=== PATIENT | female | born 1945 ===

== ENCOUNTER 2018-07-10 12:12 | Inpatient (IN) | payer OTHER ==
[2018-07-10] MEDS ORDERED: CYCLOBENZAPRINE 10 MG TAB PO PRN (15:20)
[2018-07-10 15:32] LABS: PLATELET COUNT 232 10^3/uL (150-400)
--- NOTE | 2018-07-10 15:42 | PDGENHP ---
History and Physical - Chief Complaint transfer from [facility] - History of Present Illness 72 yo female with hx of ESRD admitted to [facility] on 07/09 with syncope and weakness. She had a syncopal episode prior to arrival to [facility] ER. At the ER, she was noted to have electrolyte imbalance including Hypokalemia and Hypocalcemia. She did not have significant hypomagnesemia. She went into [place]. EKG showed prolonged QT; Amio was started. Electrolytes were replaced. She was admitted into their ICU and had recurrence of the [place] and had cardiopulmonary arrest which required chest compressions and defibrillation. She has been kept on the Amio. Plan today was to proceed with possible cardiac cath. However the [facility] cardiac cath machine is not functional and she has been transferred to our ICU for further w/u and evaluation. Leading up to yesterday, the pt had some generalized malaise. She does reports that she has been getting dry with dialysis and that less fluid has been removed during her 2 previous dialysis sessions prior to hospitalization. She denies active chest pain. She denies SOB. She is scheduled for HD today and I have confirmed with nephrology. She denies recent medication changes, fevers. She denies rash. Denies focal neuro sx's. Labs are pending EKG is pending PMHx: IDDM, Type 2 HLD, intolerant of statin due to myalgia ESRD PROLONGED QT CAD CABG (5 vessel) HYPOTHYROIDISM SOC: LIVES ALONE FMHX: NON CONTRIBUTORY History Information - Allergies/Home Medication List Allergies/Adverse Reactions: cats Allergy (Mild, Uncoded 07/10/18 15:17) Home Medications: Allopurinol [Allopurinol 100 MG (*)] 100 mg PO DAILY 07/10/18 [Last Taken ] Aspirin EC [Aspirin EC 81 mg (*)] 81 mg PO DAILY 07/10/18 [Last Taken Unknown] Carvedilol [Coreg] 12.5 mg PO BIDMEAL 07/10/18 [Last Taken Unknown] Citalopram [CeleXA] 20 mg PO DAILY 07/10/18 [Last Taken Unknown] Cyclobenzaprine [Cyclobenzaprine HCl] 5 mg PO BID PRN 07/10/18 [Last Taken Unknown] Fluticasone Nasal [Flonase Nasal [place] (RX)] 2 sprays NASAL DAILY PRN 07/10/18 [ Last Taken Unknown] Fluticasone/Vilanterol [Breo Ellipta 200-25 Mcg INH] 1 each IH BID 07/10/18 [ Last Taken Unknown] Folic Acid/Vit B Com W/C [Nephro-Fernanda Rx (RX)] 1 each PO DAILY 07/10/18 [Last Taken Unknown] Herbals/Supplements -Info Only 1 ea PO DAILY 07/10/18 [Last Taken Unknown] Insulin Lispro Protamin/Lispro [Humalog Mix 75-25 Kwikpen] 4 units SC HS [Last Taken Unknown] Insulin Lispro Protamin/Lispro [Humalog Mix 75-25 Kwikpen] 20 units SC BID@07/10/18 [Last Taken Unknown] Levothyroxine [Synthroid 125 mcg (*)] 125 mcg PO DAILY06 07/10/18 [Last Taken Unknown] Loratadine [Claritin] 10 mg PO DAILY PRN 07/10/18 [Last Taken Unknown] Rosuvastatin Calcium [Crestor 20mg (*)] 20 mg PO HS 07/10/18 [Last Taken Unknown ] Sevelamer Carbonate [Renvela] 800 mg PO TIDMEAL 07/10/18 [Last Taken Unknown] amLODIPine BESYLATE [Norvasc 10 mg (*)] 10 mg PO DAILY 07/10/18 [Last Taken 03/18] guanFACINE HCL [Guanfacine HCl 1 MG (*)] 1 mg PO HS 07/10/18 [Last Taken Unknown ] traMADol [Ultram 50 mg (*)] 50 mg PO BID PRN 07/10/18 [Last Taken Unknown] I have personally reviewed and updated: medical history, social history Review of Systems Review of Systems: ROS: 10pt was reviewed & negative except for what was stated in HPI & below Physical Exam Physical Exam: Constitutional: no apparent distress Eyes: PERRL Ears, Nose, Mouth, Throat: moist mucous membranes, hearing normal Cardiovascular: regular rate and rhythym, No edema Respiratory: no respiratory distress, no rales or rhonchi, clear to auscultation Gastrointestinal: normoactive bowel sounds, soft, non-tender abdomen Genitourinary: no bladder fullness Skin: warm Neurologic: AAOx3 Psychiatric: interacting appropriately, not anxious, not encephalopathic Lymph, Heme, Immunologic: No petechiae Lab Data & Imaging Review 07/10/18 15:20 07/10/18 15:20 WBC 8.54 10^3/uL (3.80-9.50) 07/10/18 15:20 RBC 2.55 10^6/uL (4.18-5.33) L 07/10/18 15:20 Hgb 8.0 g/dL (12.6-16.3) L 07/10/18 15:20 Hct 24.6 % (38.0-47.0) L 07/10/18 15:20 MCV 96.5 fL (81.5-99.8) 07/10/18 15:20 MCH 31.4 pg (27.9-34.1) 07/10/18 15:20 MCHC 32.5 g/dL (32.4-36.7) 07/10/18 15:20 RDW 15.8 % (11.5-15.2) H 07/10/18 15:20 Plt Count 232 10^3/uL (150-400) 07/10/18 15:20 MPV 10.5 fL (8.7-11.7) 07/10/18 15:20 Neut % (Auto) 74.7 % (39.3-74.2) H 07/10/18 15:20 Lymph % (Auto) 14.1 % (15.0-45.0) L 07/10/18 15:20 [place] % (Auto) 7.3 % (4.5-13.0) 07/10/18 15:20 Eos % (Auto) 2.7 % (0.6-7.6) 07/10/18 15:20 Baso % (Auto) 0.4 % (0.3-1.7) 07/10/18 15:20 Nucleat RBC Rel Count 0.0 % (0.0-0.2) 07/10/18 15:20 Absolute Neuts (auto) 6.39 10^3/uL (1.70-6.50) 07/10/18 15:20 Absolute Lymphs (auto) 1.20 10^3/uL (1.00-3.00) 07/10/18 15:20 Absolute Monos (auto) 0.62 10^3/uL (0.30-0.80) 07/10/18 15:20 Absolute Eos (auto) 0.23 10^3/uL (0.03-0.40) 07/10/18 15:20 Absolute Basos (auto) 0.03 10^3/uL (0.02-0.10) 07/10/18 15:20 Absolute Nucleated RBC 0.00 10^3/uL (0-0.01) 07/10/18 15:20 Immature Gran % 0.8 % (0.0-1.1) 07/10/18 15:20 Immature Gran # 0.07 10^3/uL (0.00-0.10) 07/10/18 15:20 Assessment & Plan Assessment: #Syncope #[place] x 2, sustained during second episode and reported cardiopulmonary arrest requiring chest compressions and defibrillation #Prolonged QT #IDDM #Hypothyroidism #ESRD #Hypokalemia #Hypocalcemia Plan: admit ICU Stat EKG Dr. Sage Morgan consulting Unclear if her presentation is due to electrolyte imbalances vs CV disease Cont Amio: per Cardiology Possible cath per cardio HD later today STAT labs, further recss pending results ISS Home meds as appropriate total critical care is 60 minutes. D/W [facility] at [facility], Dixon Ponce ( Nephrology)
[2018-07-10 15:53] LABS: INR 1.22 (0.83-1.16); PROTIME(PATIENT) 14.9 SEC (12.0-15.0)
--- NOTE | 2018-07-10 15:53 | PDCARCONS ---
Cardiology Consult Reason for Consult: Coronary artery disease, torsade de Pointe. Chief Complaint: Syncope. Requesting Physician: Dr. Obed Escobar History of Present Illness: This 72-year-old female well known to me from my outpatient clinic. Her cardiovascular disease history is significant for: 1. Coronary artery disease. She initially presented in February of 2008 with acute coronary syndrome. Angiography indicated left main and right coronary disease. She underwent five-vessel CABG consisting of a SWIFT to the LAD, SVG to the 1st diagonal branch, SVG to an obtuse marginal branch and a sequential saphenous vein graft from the right PDA to the right posterolateral branch. Historically she has had a normal ejection fraction. Her most recent noninvasive assessment was by [facility] myocardial perfusion imaging in December of 2017. That was a low risk study that indicated mild anterior apical and inferoapical ischemia. 2. Type 2 diabetes mellitus. 3. Hypertension. 4. Hyperlipidemia. She has been intolerant to statin medications due to myalgias. 5. End-stage renal disease. She has a history of left renal artery stenosis with an atrophic kidney. Currently dialyzed Friday and Friday. 6. Morbid obesity. 7. Obstructive sleep apnea currently on CPAP. 8. COPD followed by Dr. Noe Suazo. She was transferred to the intensive care unit here from [facility]. She states that she has not been feeling well now for a couple of weeks. She has had symptoms of nausea without emesis or diarrhea. She also felt that dialysis was dehydrating her. Apparently adjustments were made to her dialysis treatments. Friday, while she was at home, she thinks she may have suffered an episode of syncope. On , she did experience an abrupt loss of consciousness. She apparently called 1 of her friends and was advised to go to the emergency department at [facility]. In the emergency department there she was initially noted to be stable. Apparently she had nonsustained torsade de Pointe. Her potassium level was noted to be in the mid threes at that time. An ECG parent Kunal indicated a prolonged QT interval. As result, she was placed on amiodarone and transferred to the ICU. Last night she experienced sustained torsade de Pointe. She required a short round of CPR and subsequently defibrillation. Apparently her potassium level at that time was 2.4. She has no history of syncope. She states she has not experienced anginal quality chest discomfort. She notes no breathlessness. History Information - Allergies/Home Medication List Allergies/Adverse Reactions: cats Allergy (Mild, Uncoded 07/10/18 15:17) Home Medications: Allopurinol [Allopurinol 100 MG (*)] 100 mg PO DAILY 07/10/18 [Last Taken ] Aspirin EC [Aspirin EC 81 mg (*)] 81 mg PO DAILY 07/10/18 [Last Taken Unknown] Carvedilol [Coreg] 12.5 mg PO BIDMEAL 07/10/18 [Last Taken Unknown] Citalopram [CeleXA] 20 mg PO DAILY 07/10/18 [Last Taken Unknown] Cyclobenzaprine [Cyclobenzaprine HCl] 5 mg PO BID PRN 07/10/18 [Last Taken Unknown] Fluticasone Nasal [Flonase Nasal [place] (RX)] 2 sprays NASAL DAILY PRN 07/10/18 [ Last Taken Unknown] Fluticasone/Vilanterol [Breo Ellipta 200-25 Mcg INH] 1 each IH BID 07/10/18 [ Last Taken Unknown] Folic Acid/Vit B Com W/C [Nephro-Fernanda Rx (RX)] 1 each PO DAILY 07/10/18 [Last Taken Unknown] Herbals/Supplements -Info Only 1 ea PO DAILY 07/10/18 [Last Taken Unknown] Insulin Lispro Protamin/Lispro [Humalog Mix 75-25 Kwikpen] 4 units SC HS [Last Taken Unknown] Insulin Lispro Protamin/Lispro [Humalog Mix 75-25 Kwikpen] 20 units SC BID@07/10/18 [Last Taken Unknown] Levothyroxine [Synthroid 125 mcg (*)] 125 mcg PO DAILY06 07/10/18 [Last Taken Unknown] Loratadine [Claritin] 10 mg PO DAILY PRN 07/10/18 [Last Taken Unknown] Rosuvastatin Calcium [Crestor 20mg (*)] 20 mg PO HS 07/10/18 [Last Taken Unknown ] Sevelamer Carbonate [Renvela] 800 mg PO TIDMEAL 07/10/18 [Last Taken Unknown] amLODIPine BESYLATE [Norvasc 10 mg (*)] 10 mg PO DAILY 07/10/18 [Last Taken 03/18] guanFACINE HCL [Guanfacine HCl 1 MG (*)] 1 mg PO HS 07/10/18 [Last Taken Unknown ] traMADol [Ultram 50 mg (*)] 50 mg PO BID PRN 07/10/18 [Last Taken Unknown] I have personally reviewed and updated: family history, medical history, social history, surgical history Past Medical History: Coronary artery disease as described above. Type 2 diabetes mellitus. Hyperlipidemia. Hypertension. Peripheral vascular disease with a history of renal artery stenosis. End-stage renal disease on hemodialysis. History of diabetic retinopathy. Obstructive sleep apnea on CPAP. Depression. Hypothyroidism. - Surgical History Additional surgical history: Prior AV fistula. Coronary artery bypass graft surgery. Cataract surgery. - Social History Smoking Status: Former smoker Alcohol Use: None Drug Use: None (She lives independently. She is here today accompanied by her son who is an emergency department physician.) Physical Exam Physical Exam: Constitutional: no apparent distress, appears nourished, not in pain Eyes: PERRL, anicteric sclera, EOMI Ears, Nose, Mouth, Throat: moist mucous membranes, hearing normal, ears appear normal, no oral mucosal ulcers Cardiovascular: regular rate and rhythym, no murmur, rub, or gallop, No edema Peripheral Pulses: 2+: carotid (R), carotid (L) Respiratory: no respiratory distress, no rales or rhonchi, clear to auscultation Gastrointestinal: normoactive bowel sounds, soft, non-tender abdomen, no palpable masses Genitourinary: no bladder fullness, no bladder tenderness Skin: warm, normal color, no rashes or abrasions, no fluctuance, no induration, No mottled Musculoskeletal: full muscle strength, no muscle tenderness, normal joint ROM, no joint effusions Psychiatric: interacting appropriately, not anxious, not encephalopathic, thought process linear Lymph, Heme, Immunologic: no cervical LAD, no supraclavicular LAD Lab and Imaging 07/10/18 15:20 07/10/18 15:20 WBC 8.54 10^3/uL (3.80-9.50) 07/10/18 15:20 RBC 2.55 10^6/uL (4.18-5.33) L 07/10/18 15:20 Hgb 8.0 g/dL (12.6-16.3) L 07/10/18 15:20 Hct 24.6 % (38.0-47.0) L 07/10/18 15:20 MCV 96.5 fL (81.5-99.8) 07/10/18 15:20 MCH 31.4 pg (27.9-34.1) 07/10/18 15:20 MCHC 32.5 g/dL (32.4-36.7) 07/10/18 15:20 RDW 15.8 % (11.5-15.2) H 07/10/18 15:20 Plt Count 232 10^3/uL (150-400) 07/10/18 15:20 MPV 10.5 fL (8.7-11.7) 07/10/18 15:20 Neut % (Auto) 74.7 % (39.3-74.2) H 07/10/18 15:20 Lymph % (Auto) 14.1 % (15.0-45.0) L 07/10/18 15:20 [place] % (Auto) 7.3 % (4.5-13.0) 07/10/18 15:20 Eos % (Auto) 2.7 % (0.6-7.6) 07/10/18 15:20 Baso % (Auto) 0.4 % (0.3-1.7) 07/10/18 15:20 Nucleat RBC Rel Count 0.0 % (0.0-0.2) 07/10/18 15:20 Absolute Neuts (auto) 6.39 10^3/uL (1.70-6.50) 07/10/18 15:20 Absolute Lymphs (auto) 1.20 10^3/uL (1.00-3.00) 07/10/18 15:20 Absolute Monos (auto) 0.62 10^3/uL (0.30-0.80) 07/10/18 15:20 Absolute Eos (auto) 0.23 10^3/uL (0.03-0.40) 07/10/18 15:20 Absolute Basos (auto) 0.03 10^3/uL (0.02-0.10) 07/10/18 15:20 Absolute Nucleated RBC 0.00 10^3/uL (0-0.01) 07/10/18 15:20 Immature Gran % 0.8 % (0.0-1.1) 07/10/18 15:20 Immature Gran # 0.07 10^3/uL (0.00-0.10) 07/10/18 15:20 Visualized and Interpreted Chest x-ray results: No Visualized and Interpreted imaging results: No Visualized and Interpreted EKG results: Yes EKG additional interpertation: Normal sinus rhythm. Heart rate 62 beats per minute. Markedly prolonged QTC measuring 584 milliseconds. Anterior T-wave inversions. First-degree AV block at 256 milliseconds. Telemetry: Sinus rhythm to sinus bradycardia Echocardiogram: He had an echocardiogram done at [facility] yesterday. This indicated a normal ejection fraction without significant valvular heart disease. A/P Assessment: 1. [place]. She has a history of polymorphic ventricular tachycardia noted in the setting of a markedly prolonged QT interval. Historically, she has had QT intervals which have measured at the upper limits of normal. More recently she has experienced a profound increase in her QT interval. This is likely on the basis of both medications (sertraline and tramadol) as well as significant electrolyte abnormalities in the form of profound hypokalemia and hypomagnesemia. 2. Prolonged QT interval. As noted above this is thought to be an acquired prolongation of the QT interval due to electrolyte abnormalities and medications. 3. Coronary artery disease. Presently, her coronary disease appears to be stable. It is possible that underlying ischemia is contributing to the current clinical presentation however I think this is less likely. She had a slight elevation in her troponin although I think this is secondary to the ventricular arrhythmia and hypotension. 4. End-stage renal disease. She currently receives hemodialysis. She is overdue for dialysis today. 5. Hypertension. 6. Hyperlipidemia with statin intolerance. 7. Type 2 diabetes mellitus. Plan: 1. She has been admitted to the intensive care unit and placed on telemetry. 2. Home medications were continued. I did discontinue the use of sertraline and tramadol. Additionally I discontinued her amiodarone infusion as I think that this is likely of no benefit. 3. Electrolytes have been checked. Although her potassium is a little on the low side I talk to Nephrology. They stated that they would correct this at the time of dialysis. Additionally, her magnesium is above 2 mg/dL therefore I do not think she needs any additional magnesium. 4. I discontinued Coreg. I think that the bradycardia is likely contributing to her electrical vulnerability in the setting of an elongated QT interval. 5. I have written for p.r.n. Hydralazine for hypertension. 6. At the present time, I do not think she requires more advanced therapies such as intravenous beta agonist infusion or temporary transvenous pacing. Should she have recurrent arrhythmias we may consider escalating therapy to this level. 7. We will plan to repeat electrolytes and an ECG in the morning.
[2018-07-10] MEDS ORDERED: D50W 25 GM/50 ML SYR IVP PRN (16:04)
[2018-07-10] MEDS ORDERED: POTASSIUM CL 20 MEQ/15 ML UDCUP PO ONE (16:52)
--- NOTE | 2018-07-10 17:11 | PDMN ---
Medical Necessity Medical necessity: MCG: M575 ventricular arrhythmias A-2 days 72yoF with PMHX ESRD, CAD, DM2, HTN, HLD, morbid obesity, TERESSA, COPD, admitted to [facility] on 07/09 for syncope and weakness- in [facility] ED- went into [place] X 2 with req chest compression and defib. transferred to [facility] for cardiac cath / HD- anticipate > 2 MN ongoing med nec care- further monitoring, eval and tx.
--- NOTE | 2018-07-10 17:51 | CPEKG ---
Test Reason : OPEN Blood Pressure : / mmHG Vent. Rate : 062 BPM Atrial Rate : 062 BPM P-R Int : 256 ms QRS Dur : 098 ms QT Int : 575 ms P-R-T Axes : 000 091 075 degrees QTc Int : 584 ms Sinus rhythm Prolonged TN interval Right axis deviation Abnormal T, consider ischemia, anterior leads Prolonged QT interval Confirmed by Uzair Rosado ([id number]) on 07/10/2018 5:51:09 PM Referred By: Obed Escobar Confirmed By:Uzair Rosado
[2018-07-10] MEDS: INSULIN LISPRO 100 UNIT/ML SC SCH (18:50)
[2018-07-10] MEDS: INSULIN 70/30 HUMAN 100 UNIT/ML SYR SC SCH ×4 (19:10→23:07)
[2018-07-10] MEDS: ROSUVASTATIN CALCIUM 20 MG TAB PO SCH (21:00)
[2018-07-10] MEDS: guanFACINE HCL 1 MG TAB PO SCH (21:00)
[2018-07-10] MEDS: SEVELAMER HCL 800 MG TAB PO SCH (21:03)
[2018-07-10] MEDS ORDERED: LIDOCAINE 1% *Not for Epidural 20 ML MDV ONE (21:30)
[2018-07-10] MEDS: FLUTICASONE NASAL 120 SPRAYS/16 GM MDI EACHNARE SCH (23:04)
[2018-07-11 04:40] LABS: PLATELET COUNT 153 10^3/uL (150-400)
[2018-07-11] MEDS: LEVOTHYROXINE 125 MCG TAB PO SCH (06:00)
[2018-07-11] MEDS ORDERED: CETIRIZINE 10 MG TAB PO PRN (09:00)
--- NOTE | 2018-07-11 09:21 | SOAPPROG ---
SOAP Progress Note Assessment/Plan: Assessment: 1. Prolonged QT. This is an acquired condition likely a result of medications ( Celexa and tramadol) as well as electrolyte abnormalities. Unfortunately, this resulted in torsade de Pointe. After cessation of these medications and correction of her electrolytes her QT interval has improved from a maximum of 720 milliseconds now down to 557 milliseconds. Additionally, she has not had any further arrhythmia. 2. [place]. As result of the above condition. No recurrence. 3. Coronary artery disease. Previous bypass surgery February of 2008. This appears to be stable at the present time. She has not experienced anginal quality chest discomfort. She has had a slight troponin elevation likely a reflection of her recent cardiac arrest. 4. Hypertension. Despite cessation of her Coreg blood pressures appear reasonably controlled at the present time. I think we will likely need to add back a lower dose of Coreg at some point. I would like to wait until her QT interval improves as a higher heart rate will only serve to shorten her QT interval. 5. Hyperlipidemia. Statin intolerant. 6. End-stage renal disease. She receives hemodialysis 3 days weekly. She does , today, appeared to be slightly volume overloaded. 7. Morbid obesity. 8. TERESSA currently using CPAP. 9. COPD. 10. Diabetes mellitus. Plan: 1. I would like to keep her in the ICU for another day. 2. I think she can eat. I have written for renal diet. 3. No medication changes today. 4. We will plan to reassess her electrolytes and ECG in the morning. 5. We will follow along with you. 07/11/18 09:21 Subjective: She is doing well today. She has not had any arrhythmia overnight. She notes no anginal quality chest discomfort or significant dyspnea. She did receive dialysis yesterday evening. She had an ECG this morning with a corrected QT interval of 557 milliseconds. Objective: Vital Signs Temp Pulse Resp BP Pulse Ox 36.8 C 67 94 H 108/45 L 2 L 07/11/18 08:00 07/11/18 08:00 07/11/18 08:00 07/11/18 08:00 07/11/18 08:00 Laboratory Results 07/11/18 04:26 07/11/18 04:26 07/10/18 07/11/18 07/12/18 05:59 05:59 05:59 Intake Total 260 Output Total 225 Balance 35 PT 14.9 SEC (12.0-15.0) 07/10/18 15:28 INR 1.22 (0.83-1.16) H 07/10/18 15:28 - Pending Discharge Pending Discharge Within 24 Hours: No Pending Discharge Within 48 Hours: No Physical Exam - Physical Exam General Appearance: WD/WN, alert, no apparent distress EENT: PERRL/EOMI, normal ENT inspection, pharynx normal, TMs normal Neck: non-tender, full range of motion, supple, normal inspection Respiratory: chest non-tender, crackles (Noted at both bases) Cardiac/Chest: normal peripheral pulses, regular rate, rhythm, other (Left upper extremity AV fistula) Peripheral Pulses: 2+: carotid (R), carotid (L) Abdomen: normal bowel sounds, non-tender, soft Pelvic Exam: deferred Rectal: deferred Back: Normal inspection Skin: normal color, warm/dry Lymphatic: no adenopathy Extremities: normal range of motion, non-tender, normal inspection, normal capillary refill Neuro/Psych: no motor/sensory deficits, alert, normal mood/affect, oriented x 3 ICD10 Worksheet Patient Problems: Problems Problem Status Onset ESRD (end stage renal disease) on dialysis Acute
--- NOTE | 2018-07-11 09:39 | ASMTCMCOM ---
CM Note CM Note Notes: Patient transferred from [facility] after two episodes of Tors[place]. She is currently stable with no recurrance. She will be monitored today and assessed with an ECG tomorrow morning. She also has a hx of ESRD and is dialyzed MWF at the [facility] She is normally independent, lives alone. She has a daughter and MORRIS in the area and a son and DIL in [place]. I anticiapte she will be able to go home with no needs other than outpatient f/u. Date Signed: 07/11/2018 09:38 AM Electronically Signed By:Lillie Andres RN
[2018-07-11] MEDS: ALLOPURINOL 100 MG TAB PO SCH (09:43)
[2018-07-11] MEDS: SEVELAMER HCL 800 MG TAB PO SCH ×3 (09:43→19:23)
[2018-07-11] MEDS: ASPIRIN EC 81 MG TAB PO SCH (09:43)
[2018-07-11] MEDS: INSULIN LISPRO 100 UNIT/ML SC SCH ×3 (09:44→18:56)
[2018-07-11] MEDS: NEPHROVITE FOLIC ACID/VIT B&C 1 TAB PO SCH (09:44)
[2018-07-11] MEDS: INSULIN 70/30 HUMAN 100 UNIT/ML SYR SC SCH ×3 (09:44→20:55)
[2018-07-11] MEDS: FLUTICASONE NASAL 120 SPRAYS/16 GM MDI EACHNARE SCH (10:21)
--- NOTE | 2018-07-11 10:21 | SOAPPROG ---
SOAP Progress Note Assessment/Plan: Assessment/Plan: ESRD: on HD [facility] and [facility]. - HD done yesterday. - Will plan on HD on Friday per routine. Hypokalemia: improved after getting potassium and dialyzing on higher K bath. No need for low K diet at this time, will monitor. Hypocalcemia: improved with higher calcium dialysate. Hyponatremia: will modulate on HD, will also place on 1200ml fluid restriction. HTN: BP ok on current meds. Subjective: No acute events overnight. Pt had HD last night and tolerated well. She has no complaints today except pain in her ribcage. Objective: Vital Signs Temp Pulse Resp BP Pulse Ox 36.8 C 67 94 H 108/45 L 2 L 07/11/18 08:00 07/11/18 08:00 07/11/18 08:00 07/11/18 08:00 07/11/18 08:00 Laboratory Results 07/11/18 04:26 07/11/18 04:26 07/10/18 07/11/18 07/12/18 05:59 05:59 05:59 Intake Total 260 Output Total 225 Balance 35 PT 14.9 SEC (12.0-15.0) 07/10/18 15:28 INR 1.22 (0.83-1.16) H 07/10/18 15:28 General: alert and oriented, no acute distress Eyes: EOMI, PERRL OP: Clear CV: RRR Resp: nonlabored respirations Abd: Soft, NT/ND Ext: no edema BLE Neuro: CN II-XII Grossly intact, no asterixis Psych: cooperative Access: LUE AVF with thrill and bruit appreciated ICD10 Worksheet Patient Problems: Problems Problem Status Onset ESRD (end stage renal disease) on dialysis Acute - ICD10 Problem Qualifiers (1) ESRD (end stage renal disease) on dialysis
[2018-07-11] MEDS: FLUTICASONE/SALMETER 250/50MCG DISKUS IH SCH ×2 (11:11→20:42)
--- NOTE | 2018-07-11 11:43 | GCON ---
[f rep st] CONSULTATION PULMONARY CRITICAL CARE CONSULTATION DATE OF CONSULTATION: 07/11/2018 HISTORY OF PRESENT ILLNESS: This patient is a 72-year-old female with a history of coronary artery d isease and end-stage renal disease, dependent on dialysis Friday, Friday, Friday. She was admitte d at [facility] after 2 weeks of nausea, feeling that she may have been dry from dialys is. She had at least 1 near syncopal event and a full syncopal event that got her in the hospital. She was found to have nonsustained polymorphic ventricular tachycardia and was admitted for ongoing e valuation. Her QT interval was lengthened, but her medications were not altered at that time. She h ad a 2nd episode while in the hospital and required brief CPR, the details of which are not known to me at this time. She had been placed on an amiodarone drip as well. Subsequently, the team at [facility] said that their cardiac catheterization lab was unavailable and requested a transfer. She was ac cepted by the hospitalist, as well as Dr. Morgan, who knew her well. In any case, on arrival she had been quite stable and has been monitored here in the ICU without much difficulty. Symptomatically, s he feels well. She is not short of breath. She has no cough or hemoptysis. She does complain of so me right-sided chest discomfort that did not exist prior to her hospitalization. REVIEW OF SYSTEMS: Otherwise negative. PAST MEDICAL HISTORY: Includes: 1. Coronary artery disease. 2. Diabetes. 3. End-stage renal disease. 4. Hyperlipidemia. 5. Hypertension. 6. Chronic obstructive pulmonary disease. 7. Diabetic retinopathy. 8. Obstructive sleep apnea on CPAP. 9. Depression. 10. Hypothyroidism. 11. Gout. PAST SURGICAL HISTORY: Includes: Coronary artery bypass grafting, cataract surgery, and AV fistula placement. SOCIAL HISTORY: She is a former smoker. FAMILY HISTORY: Currently noncontributory. CURRENT MEDICATIONS: Include: Tylenol, allopurinol, Norvasc, aspirin, Zyrtec, Flexeril, Flonase, hy dralazine p.r.n., insulin, Synthroid, Crestor, Renagel and folate. PHYSICAL EXAM: VITAL SIGNS: Today, she is afebrile, blood pressure 159/58, heart rate 57, respirati ons 20, oxygen saturation 90% on 2 L. GENERAL: She was awake, alert, in no apparent distress and ab le to speak in full sentences without using accessory muscles for breathing. HEENT: Pupils equally round and reactive to light nonicteric and noninjected. Mucous membranes moist without erythema or e xudate. NECK: Supple without adenopathy. I could not detect jugular vein distention. LUNGS: Ermelinda th sounds were clear to auscultation bilaterally without wheezes, rubs, rales. HEART: Regular rate and rhythm without murmurs, rubs, gallops. ABDOMEN: Soft, nontender, nondistended without hepatospl enomegaly. EXTREMITIES: Show no clubbing, cyanosis, or edema. NEUROLOGIC: Nonfocal, including cran ial nerves, deep tendon reflexes. SKIN: Warm, dry, without evidence of rash. OBJECTIVE DATA: Includes: White count of 6, hematocrit 38, platelets 153. Basic metabolic panel sh ows sodium 132, creatinine 2.5, potassium 4.1, chloride 97, bicarb 26, BUN 16, glucose 160, calcium 8 .4, phos 3.8, mag 2.3. Troponin 0.113, then 0.097 and 0.087. TSH of 0.90, free T4 of 2.09 and T3 of 0.788. ASSESSMENT/PLAN: 1. Cardiac arrest, which sounds like it was very brief related to polymorphic ventricular tachycardi a. Her medications have been altered currently by Dr. Morgan. She appears to be stable at this time. Ongoing monitoring is anticipated. Her original event was probably precipitated by multiple QT pro longing medications along with aggressive dialysis and hypokalemia. 2. Chest discomfort, possibly related to her CPR. There is no chest x-ray in our system, so I will look at that now, but no concern for pneumothorax at this moment. 3. Chronic obstructive pulmonary disease is fairly stable. She can bring in her own Breo. I will p ut her on Advair for now until that arrives. 4. Sleep apnea. She is using CPAP regularly and reports good compliance. She should continue using her own device. /[id number]/MODL
--- NOTE | 2018-07-11 13:36 | HOSPPROG ---
Hospitalist Progress Note Assessment/Plan: #Syncope, likely from electrolyte abnormalities #Torsade de Point x 2, sustained during second episode and reported cardiopulmonary arrest requiring chest compressions and defibrillation -likely from electrolyte abnormalities -no indication for Cath #Prolonged QT: per above. home meds causing prolongation have been stopped #IDDM -on home regimen -ISS #Hypothyroidism -appears over controlled. We discussed with patient today. She refuses decrease at this time as lowering the dose previously led to hypothyroidism symptoms. #ESRD -Next HD on Friday #Hypokalemia: resolved #Hypocalcemia: resolved Plan: cont ICU Subjective: no cp or sob. no overnight events. Objective: Vital Signs Temp Pulse Resp BP Pulse Ox 36.8 C 69 21 H 141/52 H 90 L 07/11/18 12:00 07/11/18 12:00 07/11/18 12:00 07/11/18 12:00 07/11/18 12:00 Laboratory Results 07/11/18 04:26 07/11/18 04:26 07/10/18 07/11/18 07/12/18 05:59 05:59 05:59 Intake Total 260 120 Output Total 225 Balance 35 120 PT 14.9 SEC (12.0-15.0) 07/10/18 15:28 INR 1.22 (0.83-1.16) H 07/10/18 15:28 - Physical Exam Constitutional: no apparent distress Eyes: PERRL, EOMI Ears, Nose, Mouth, Throat: moist mucous membranes, hearing normal Cardiovascular: regular rate and rhythym Respiratory: no respiratory distress, no rales or rhonchi Gastrointestinal: normoactive bowel sounds, soft, non-tender abdomen Skin: warm Neurologic: AAOx3 Psychiatric: interacting appropriately, not anxious, not encephalopathic Lymph, Heme, Immunologic: No petechiae ICD10 Worksheet Patient Problems: Problems Problem Status Onset ESRD (end stage renal disease) on dialysis Acute
[2018-07-11] MEDS: HEPARIN 5,000 UNIT/0.5 ML INJ SC SCH ×2 (17:08→21:05)
[2018-07-11] MEDS: ROSUVASTATIN CALCIUM 20 MG TAB PO SCH (20:52)
[2018-07-11] MEDS: guanFACINE HCL 1 MG TAB PO SCH (20:52)
[2018-07-12] MEDS: HEPARIN 5,000 UNIT/0.5 ML INJ SC SCH ×3 (06:00→22:10)
[2018-07-12] MEDS: LEVOTHYROXINE 125 MCG TAB PO SCH (06:00)
--- NOTE | 2018-07-12 08:20 | SOAPPROG ---
SOAP Progress Note Assessment/Plan: Assessment: 1. Prolonged QT. This is an acquired condition likely a result of medications ( Celexa and tramadol) as well as electrolyte abnormalities. Unfortunately, this resulted in torsade de Pointe. After cessation of these medications and correction of her electrolytes her QT interval has improved from a maximum of 720 milliseconds now down to 557 milliseconds. Additionally, she has not had any further arrhythmia. 2. Torsade de Pointe. As result of the above condition. No recurrence. 3. Coronary artery disease. Previous bypass surgery February of 2008. This appears to be stable at the present time. She has not experienced anginal quality chest discomfort. She has had a slight troponin elevation likely a reflection of her recent cardiac arrest. 4. Hypertension. Despite cessation of her Coreg blood pressures appear reasonably controlled at the present time. I think we will likely need to add back a lower dose of Coreg at some point. I would like to wait until her QT interval improves as a higher heart rate will only serve to shorten her QT interval. 5. Hyperlipidemia. Statin intolerant. 6. End-stage renal disease. She receives hemodialysis 3 days weekly. She does , today, appeared to be slightly volume overloaded. 7. Morbid obesity. 8. TERESSA currently using CPAP. 9. COPD. 10. Diabetes mellitus. 07/12/2018: She continues to be stable. We have seen a slow improvement in her overall corrected QT interval. She has not had any further arrhythmias. Electrolytes are now corrected to within normal limits. Unfortunately, she was previously administered amiodarone and, as an outpatient, was taking citalopram. Amiodarone, obviously, has a very long half-life. Additionally, citalopram in the elderly can have a half life of several days. Therefore I would not expect her corrected QT interval to improve rapidly. By examination she appears to be modestly volume overload with JVD and rales. She is not scheduled for dialysis until Friday. Plan: 1. At this point I think she can be transferred to the PCU. 2. No changes to her medications today. 3. We will plan for assessment of her electrolytes and ECG in the morning. 4. I do not feel compelled to have her undergo coronary angiography at this time. I will discuss this further with electrophysiology tomorrow. 5. We will follow along with you. 07/12/18 08:20 Subjective: She is doing well today. She has not had any further arrhythmic events. On telemetry she is in sinus rhythm with occasional PVCs. Her electrolytes are within normal range based on today's labs. In review of her ECG her corrected QT interval is now 540 milliseconds. She does complain of being weak. She did not receive dialysis yesterday. Objective: Vital Signs Temp Pulse Resp BP Pulse Ox 36.8 C 53 L 17 122/61 H 96 07/12/18 04:00 07/12/18 06:00 07/12/18 06:00 07/12/18 06:00 07/12/18 06:00 Laboratory Results 07/11/18 04:26 07/12/18 04:19 07/11/18 07/12/18 07/13/18 05:59 05:59 05:59 Intake Total 260 1300 Output Total 225 0 Balance 35 1300 PT 14.9 SEC (12.0-15.0) 07/10/18 15:28 INR 1.22 (0.83-1.16) H 07/10/18 15:28 Physical Exam - Physical Exam General Appearance: WD/WN, no apparent distress Neck: non-tender, full range of motion Respiratory: crackles (Noted in both bases), No respiratory distress, No accessory muscle use, No decreased breath sounds, No rales, No rhonchi Cardiac/Chest: regular rate, rhythm, JVD (Positive JVD noted at 5 cm above the sternal notch), No edema, No gallop Peripheral Pulses: 2+: carotid (R), carotid (L) Abdomen: non-tender, soft Pelvic Exam: deferred Rectal: deferred Neuro/Psych: alert, oriented x 3 ICD10 Worksheet Patient Problems: Problems Problem Status Onset ESRD (end stage renal disease) on dialysis Acute
[2018-07-12] MEDS: FLUTICASONE/SALMETER 250/50MCG DISKUS IH SCH ×2 (08:21→18:57)
[2018-07-12] MEDS: INSULIN LISPRO 100 UNIT/ML SC SCH ×3 (08:38→19:15)
[2018-07-12] MEDS: INSULIN 70/30 HUMAN 100 UNIT/ML SYR SC SCH ×3 (08:39→22:09)
[2018-07-12] MEDS: ACETAMINOPHEN 325 MG TAB PO PRN ×3 (08:40→19:55)
[2018-07-12] MEDS: SEVELAMER HCL 800 MG TAB PO SCH ×3 (10:31→19:15)
[2018-07-12] MEDS: ASPIRIN EC 81 MG TAB PO SCH (10:33)
[2018-07-12] MEDS: ALLOPURINOL 100 MG TAB PO SCH (10:33)
[2018-07-12] MEDS: NEPHROVITE FOLIC ACID/VIT B&C 1 TAB PO SCH (10:33)
[2018-07-12] MEDS: FLUTICASONE NASAL 120 SPRAYS/16 GM MDI EACHNARE SCH (10:59)
--- NOTE | 2018-07-12 11:57 | HOSPPROG ---
Hospitalist Progress Note Assessment/Plan: 72 yo female transferred from [facility] following admission for syncope with subsequent Torsades due to prolonged QT measuring 720ms due to electrolyte abnormalities. Now doing better, s/p HD. No indication for Cardiac cath. #Syncope, likely from electrolyte abnormalities #Torsade de Point x 2, sustained during second episode and reported cardiopulmonary arrest requiring chest compressions and defibrillation -likely from electrolyte abnormalities -no indication for Cath #Prolonged QT: per above. home meds causing prolongation have been stopped -holding Coreg. Can likely restart if QT cont to improve and normalize #IDDM -on home regimen -Overall Glucose mgmt is ok -cont ISS #Hypothyroidism -appears over controlled. We discussed with the pt on 07/11. She refuses decrease at this time as lowering the dose previously led to hypothyroidism symptoms. She will f/u with her PCP #ESRD -HD on 07/10 -Next HD today vs tomorrow pending renal eval today. She does have some volume overload and may benefit today per cards reccs. D/w Nephrology #Hypokalemia: resolved #Hypocalcemia: resolved Plan: move to PCU PT eval Subjective: no further arrhythmia. Some SOB. some cp from chest compressions Objective: Vital Signs Temp Pulse Resp BP Pulse Ox 36.8 C 65 25 H 145/72 H 97 07/12/18 04:00 07/12/18 08:28 07/12/18 08:28 07/12/18 10:33 07/12/18 08:28 Laboratory Results 07/11/18 04:26 07/12/18 04:19 07/11/18 07/12/18 07/13/18 05:59 05:59 05:59 Intake Total 260 1300 Output Total 225 0 Balance 35 1300 PT 14.9 SEC (12.0-15.0) 07/10/18 15:28 INR 1.22 (0.83-1.16) H 07/10/18 15:28 - Physical Exam Constitutional: no apparent distress Eyes: PERRL, EOMI Ears, Nose, Mouth, Throat: moist mucous membranes, hearing normal Cardiovascular: regular rate and rhythym, edema (trace) Respiratory: no respiratory distress, reduced air movement Gastrointestinal: normoactive bowel sounds, soft, non-tender abdomen Skin: warm Neurologic: AAOx3 Psychiatric: interacting appropriately, not anxious, not encephalopathic Lymph, Heme, Immunologic: No petechiae ICD10 Worksheet Patient Problems: Problems Problem Status Onset ESRD (end stage renal disease) on dialysis Acute
--- NOTE | 2018-07-12 16:41 | SOAPPROG ---
SOAP Progress Note Assessment/Plan: Assessment/Plan: ESRD: on HD MWF and [facility]. - Doing HD today for fluid removal. - Next HD on Friday per routine. Hypokalemia: better, running on 4K bath. Hypocalcemia: improved with higher calcium dialysate. Hyponatremia: will modulate on HD, will also place on 1200ml fluid restriction. HTN: BP ok on current meds. Subjective: No acute events overnight. Pt states that she is feeling well, just has pain in her R ribcage and also some cough. She is on HD this afternoon and tolerating well. Objective: Vital Signs Temp Pulse Resp BP Pulse Ox 36.8 C 56 L 21 H 167/62 H 94 07/12/18 04:00 07/12/18 13:49 07/12/18 13:49 07/12/18 13:49 07/12/18 13:49 Laboratory Results 07/11/18 04:26 07/12/18 04:19 07/11/18 07/12/18 07/13/18 05:59 05:59 05:59 Intake Total 260 1300 Output Total 225 0 Balance 35 1300 PT 14.9 SEC (12.0-15.0) 07/10/18 15:28 INR 1.22 (0.83-1.16) H 07/10/18 15:28 General: alert and oriented, no acute distress Eyes: EOMI, PERRL OP: Clear CV: RRR Resp: nonlabored respirations on NC, +slight crackles Abd: Soft, NT/ND Ext: no edema BLE Neuro: CN II-XII grossly intact ICD10 Worksheet Patient Problems: Problems Problem Status Onset ESRD (end stage renal disease) on dialysis Acute - ICD10 Problem Qualifiers (1) ESRD (end stage renal disease) on dialysis
[2018-07-12] MEDS: guanFACINE HCL 1 MG TAB PO SCH (19:52)
[2018-07-12] MEDS: hydrALAZINE 20 MG/ML VIAL IVP PRN (19:52)
[2018-07-12] MEDS: ROSUVASTATIN CALCIUM 20 MG TAB PO SCH (19:52)
[2018-07-12] MEDS ORDERED: LIDOCAINE 1% *Not for Epidural 20 ML MDV ONE (20:11)
[2018-07-13] MEDS: ACETAMINOPHEN 325 MG TAB PO PRN ×2 (03:36→16:40)
[2018-07-13] MEDS: HEPARIN 5,000 UNIT/0.5 ML INJ SC SCH ×3 (05:42→21:09)
[2018-07-13] MEDS: LEVOTHYROXINE 125 MCG TAB PO SCH (05:42)
--- NOTE | 2018-07-13 07:54 | SOAPPROG ---
SOAP Progress Note Assessment/Plan: Assessment: #ESRD- [facility] PHAM -Had HD last night, will likely run again Fri but will assess for need tomorrow (and if cath needed, we can work around cardiology schedule) #Prolonged Qt -appreciate cardiology input, felt med and lyte related-- Qt improving but still inverted t waves and possible cath vs stress test planned pending today's EKG results. -unclear precipitant of electrolyte abnormalities as has been stable as outpt on dialysis- I reviewed last few months' worth (K has been high 3, Ca high 8). Will hold parsabiv for now. Pt denies any n/v, diarrhea prior to admit. #Hypokalemia -unclear precipitant- I reviewed her outpt dialysis labs and K and Ca have been wnl -improved, continue to monitor #CAD s/p CABG 2008 #anemia CKD -hb at goal #MBD of CKD -Ca/phos at goal #TERESSA on CPAP at night #DM2 #hypothyroidism I discussed at bedside with cardiology Meme Lott MD [facility] pager [phone] Subjective: Feeling better. No cp, sob, dizziness. Had HD yesterday ok. Discussed events last week- denies any prior syncope,dizziness episodes prior to Wed. No changes to med. no n/v, diarrhea, and thinks eating ok then. Objective: Vital Signs Temp Pulse Resp BP Pulse Ox 36.6 C 60 16 166/55 H 99 07/13/18 00:00 07/13/18 07:21 07/13/18 07:21 07/13/18 07:21 07/13/18 07:21 Laboratory Results 07/11/18 04:26 07/13/18 04:20 07/12/18 07/13/18 07/14/18 05:59 05:59 05:59 Intake Total 1300 650 Output Total 0 Balance 1300 650 PT 14.9 SEC (12.0-15.0) 07/10/18 15:28 INR 1.22 (0.83-1.16) H 07/10/18 15:28 Physical Exam - Physical Exam General Appearance: alert, no apparent distress EENT: other (mmm) Neck: supple Respiratory: lungs clear Cardiac/Chest: regular rate, rhythm, other (no rub) Abdomen: normal bowel sounds, non-tender, soft Skin: warm/dry Extremities: other (no edema, AVF +thrill/bruit) Neuro/Psych: alert, oriented x 3 ICD10 Worksheet Patient Problems: Problems Problem Status Onset ESRD (end stage renal disease) on dialysis Acute
--- NOTE | 2018-07-13 08:30 | CPEKG ---
Test Reason : OPEN Blood Pressure : / mmHG Vent. Rate : 067 BPM Atrial Rate : 066 BPM P-R Int : 207 ms QRS Dur : 092 ms QT Int : 527 ms P-R-T Axes : 017 094 050 degrees QTc Int : 557 ms sinus rhythm. first degree AV block Left posterior fascular block Long QTc Confirmed by Uzair Rosado ([id number]) on 07/13/2018 8:29:34 AM Referred By: Obed Escobar Confirmed By:Uzair Rosado
--- NOTE | 2018-07-13 08:32 | CPEKG ---
Test Reason : OPEN Blood Pressure : / mmHG Vent. Rate : 064 BPM Atrial Rate : 064 BPM P-R Int : 214 ms QRS Dur : 079 ms QT Int : 529 ms P-R-T Axes : -88 085 057 degrees QTc Int : 546 ms Sinus RHYTHM FIRST DEGREE AV BLOCK ANTERIOR T WAVE INVERSIONS:QUERY ISCHEMIA Confirmed by Uzair Rosado ([id number]) on 07/13/2018 8:31:41 AM Referred By: Obed Escobar Confirmed By:Uzair Rosado
[2018-07-13] MEDS: NEPHROVITE FOLIC ACID/VIT B&C 1 TAB PO SCH (09:12)
[2018-07-13] MEDS: ALLOPURINOL 100 MG TAB PO SCH (09:12)
[2018-07-13] MEDS: INSULIN 70/30 HUMAN 100 UNIT/ML SYR SC SCH ×3 (09:12→21:19)
[2018-07-13] MEDS: INSULIN LISPRO 100 UNIT/ML SC SCH ×3 (09:12→17:24)
[2018-07-13] MEDS: SEVELAMER HCL 800 MG TAB PO SCH ×3 (09:13→18:11)
[2018-07-13] MEDS: ASPIRIN EC 81 MG TAB PO SCH (09:13)
[2018-07-13] MEDS: FLUTICASONE/SALMETER 250/50MCG DISKUS IH SCH ×2 (09:17→20:12)
[2018-07-13] MEDS: FLUTICASONE NASAL 120 SPRAYS/16 GM MDI EACHNARE SCH (09:17)
--- NOTE | 2018-07-13 12:09 | PDCARPN ---
<SarthakchaddJames burns - Last Filed: 07/13/18 11:59> Cardiology Progress Note Chief Complaint: Polymorphic VT, long QT, CAD Assessment/Plan: Assessment: 1. Prolonged QT: Max 720ms. Most likely multifactorial, including medical therapy with Celexa, amiodarone, and tramadol. Slowly normalizing, 537ms today. Normal BMP 2. Polymorphic VT: Likely resulting from long QT. Query whether there may be an ischemic component as well. 3. Coronary artery disease: CABG in 02/2008. Anterior t-wave inversion noted on prior 12-lead ECGs, resolved today with new 1mm ST depression in V3-V6. Patient reports progressive mild fatigue over the past several months. No chest discomfort or other anginal symptoms 4. Hypertension: Coreg held until QT interval normalizes, continue to monitor 5. End-stage renal disease: HD 3x/week, next scheduled for Saturday 07/15 6. TERESSA: On CPAP 10. DM II Plan: 1. Plan for coronary angiogram with Dr. Morgan on Friday at 0900 2. Hold Lovenox morning of cath, last dose 12hrs prior 3. Continue to monitor QTc and electrolytes 4. Nephrology for plan to proceed hemodialysis Friday after her morning cath 07/12/18 08:20 Subjective: Improved this morning, no recurrence of arrhythmia overnight Reviewed/Discussed With: multidisciplinary team Time Spent with Patient: greater than 25 minutes Time Spent with Patient: Greater than 25 minutes spent on this patients care, greater than 50% of time spent counseling, educating, and coordinating care regarding the above mentioned plan. Objective: Vital Signs (8 Hrs) Temp Pulse Resp BP Pulse Ox 07/13/18 11:37 36.6 C 60 16 121/52 H 96 07/13/18 09:14 59 L 141/58 H 07/13/18 08:00 58 L 17 141/57 H 97 07/13/18 07:21 60 16 166/55 H 99 Intake/Output (24 Hrs) 07/12/18 07/13/18 07/14/18 05:59 05:59 05:59 Intake Total 1300 650 Output Total 0 Balance 1300 650 Intake: Oral (ml) 1300 650 Output: Urine (ml) 0 Bedside Commode 0 Other: Number of Voids Bedside Commode 1 1 Toilet 1 1 Result Diagrams: 07/11/18 04:26 07/13/18 04:20 Cardiac Labs: Cardiac Lab Results (72 Hrs) 07/11/18 07/10/18 07/10/18 04:26 22:09 15:20 Troponin I 0.087 H 0.097 H 0.113 H EKG: NSR, QTc 537ms, 1mm ST depression V3-V6 - Physical Exam Constitutional: WDWN, healthy appearing, no apparent distress Ears, Nose, Mouth, Throat: moist mucous membranes, no oral ulcers, no thrush Neurologic: AAOx3, CN II-XII grossly intact Psychiatric: cooperative, interactive, following commands, not anxious ICD10 Worksheet Patient Problems: Problems Problem Status Onset ESRD (end stage renal disease) on dialysis Acute <Jose Cardoso A - Last Filed: 07/13/18 13:13> Cardiology Progress Note Assessment/Plan: Addendum S Janae - patient seen with VB, personally performed HPI, exam. Case d.w. OP specialty trimmer Dr. Yung Henry and Dr. Sage Morgan. ECG today shows lateral ST depressions, anterior T W inversions have resolved. Patient has been complaining of progressive fatigue. Plan coronary angiogram with Dr. Morgan on Fri AM, dialysis on Fri PM. 07/13/18 13:11 Objective: Vital Signs (8 Hrs) Temp Pulse Resp BP Pulse Ox 07/13/18 11:37 36.6 C 60 16 121/52 H 96 07/13/18 09:14 59 L 141/58 H 07/13/18 08:00 58 L 17 141/57 H 97 07/13/18 07:21 60 16 166/55 H 99 Intake/Output (24 Hrs) 07/12/18 07/13/18 07/14/18 11:59 11:59 11:59 Intake Total 1180 650 Output Total 0 Balance 1180 650 Intake: Oral (ml) 1180 650 Output: Urine (ml) 0 Bedside Commode 0 Other: Number of Voids Bedside Commode 1 Toilet 1 Result Diagrams: 07/11/18 04:26 07/13/18 04:20 Cardiac Labs: Cardiac Lab Results (72 Hrs) 07/11/18 07/10/18 07/10/18 04:26 22:09 15:20 Troponin I 0.087 H 0.097 H 0.113 H
--- NOTE | 2018-07-13 13:08 | HOSPPROG ---
Hospitalist Progress Note Assessment/Plan: 72yo F with CAD s/p CABG, ESRD transferred from [facility] following admission for syncope with subsequent Torsades de Pointes due to prolonged QT. #Prolonged QTc: Suspect due to meds (citalopram, tramadol, amio). Now improving. Holding coreg. #Torsades de Pointes: Likely 2/2 above. Cardiology planning on coronary angiography 07/15. Daily BMP, Mg. #Cardiopulmonary arrest s/p ROSC: Due to above. #ESRD: S/p HD on 07/12. Plan to repeat HD on 07/15 after cath. #IDDM: BG labile. Will continue current regimen for now and monitor. #Chest discomfort: Related to CPR. #Hypothyroidism: TSH significantly low. Recommended decreasing dose but patient refused. Will f/u with PCP. #TERESSA: On CPAP Dispo: Remain in PCU Subjective: Didn't sleep well, requesting sleep aid. No further events on tele. Chest discomfort from CPR improving. Objective: Vital Signs Temp Pulse Resp BP Pulse Ox 36.6 C 60 16 121/52 H 96 07/13/18 11:37 07/13/18 11:37 07/13/18 11:37 07/13/18 11:37 07/13/18 11:37 Laboratory Results 07/11/18 04:26 07/13/18 04:20 07/12/18 07/13/18 07/14/18 05:59 05:59 05:59 Intake Total 1300 650 Output Total 0 Balance 1300 650 PT 14.9 SEC (12.0-15.0) 07/10/18 15:28 INR 1.22 (0.83-1.16) H 07/10/18 15:28 - Physical Exam Constitutional: no apparent distress, appears nourished, not in pain Eyes: PERRL, anicteric sclera, EOMI Ears, Nose, Mouth, Throat: moist mucous membranes, hearing normal, ears appear normal, no oral mucosal ulcers Cardiovascular: regular rate and rhythym, no murmur, rub, or gallop, No edema Respiratory: no respiratory distress, no rales or rhonchi, clear to auscultation Gastrointestinal: normoactive bowel sounds, soft, non-tender abdomen, no palpable masses Genitourinary: no bladder fullness, no bladder tenderness, no renal bruits Skin: other (AV fistula with good thrill) Musculoskeletal: full muscle strength Neurologic: AAOx3 Psychiatric: interacting appropriately ICD10 Worksheet Patient Problems: Problems Problem Status Onset ESRD (end stage renal disease) on dialysis Acute
--- NOTE | 2018-07-13 14:03 | ASMTCMCOM ---
CM Note CM Note Notes: Pt has been progressing with therapies and medically. At this time OT rec home. Pt had questions about setting up a life alert system. CM provided her with information. Pt was appreciative. PT evals pending. CM to follow. Plan: likely independent, pending PT eval. Date Signed: 07/13/2018 02:02 PM Electronically Signed By:DAVID Moses
[2018-07-13] MEDS ORDERED: diphenhydrAMINE 25 MG CAP PO PRN (16:04)
--- NOTE | 2018-07-13 16:22 | CPEKG ---
Test Reason : OPEN Blood Pressure : / mmHG Vent. Rate : 079 BPM Atrial Rate : 082 BPM P-R Int : 215 ms QRS Dur : 092 ms QT Int : 467 ms P-R-T Axes : -30 100 -09 degrees QTc Int : 536 ms Sinus rhythm Ventricular premature complex Borderline prolonged [place] interval Right axis deviation Nonspecific repol abnormality, diffuse leads Prolonged QT interval Compared with 07/12/2018 repol abnl more pronounced. PVC noted Confirmed by Zee Starks ([id number]) on 07/13/2018 4:21:54 PM Referred By: Obed Escobar Confirmed By:Zee Straks
[2018-07-13] MEDS: guanFACINE HCL 1 MG TAB PO SCH (21:09)
[2018-07-13] MEDS: ROSUVASTATIN CALCIUM 20 MG TAB PO SCH (21:09)
[2018-07-14] MEDS: LORazepam 0.5 MG TAB PO PRN ×2 (02:42→22:53)
[2018-07-14] MEDS: diphenhydrAMINE 25 MG CAP PO PRN ×2 (02:44→22:53)
[2018-07-14] MEDS: LEVOTHYROXINE 125 MCG TAB PO SCH (05:39)
[2018-07-14] MEDS: HEPARIN 5,000 UNIT/0.5 ML INJ SC SCH ×3 (05:39→20:08)
[2018-07-14] MEDS: SEVELAMER HCL 800 MG TAB PO SCH ×3 (08:22→17:29)
[2018-07-14] MEDS: ASPIRIN EC 81 MG TAB PO SCH (08:22)
[2018-07-14] MEDS: ALLOPURINOL 100 MG TAB PO SCH (08:22)
[2018-07-14] MEDS: NEPHROVITE FOLIC ACID/VIT B&C 1 TAB PO SCH (08:22)
[2018-07-14] MEDS: INSULIN 70/30 HUMAN 100 UNIT/ML SYR SC SCH ×3 (08:22→22:52)
[2018-07-14] MEDS: ACETAMINOPHEN 325 MG TAB PO PRN (08:22)
[2018-07-14] MEDS: INSULIN LISPRO 100 UNIT/ML SC SCH ×3 (08:23→17:30)
[2018-07-14] MEDS: FLUTICASONE NASAL 120 SPRAYS/16 GM MDI EACHNARE SCH (08:26)
[2018-07-14] MEDS: FLUTICASONE/SALMETER 250/50MCG DISKUS IH SCH (08:27)
--- NOTE | 2018-07-14 11:19 | HOSPPROG ---
Hospitalist Progress Note Assessment/Plan: 72yo F with CAD s/p CABG, ESRD transferred from [facility] following admission for syncope with subsequent Torsades de Pointes due to prolonged QT. #Prolonged QTc: Suspect due to meds (citalopram, tramadol, amio). No ecg today but has been improving. Holding coreg. #Torsades de Pointes: Likely 2/2 above. Cardiology planning on coronary angiography tomorrow 07/15, NPO at midnight. Daily BMP, Mg. #Cardiopulmonary arrest s/p ROSC: Due to above. #ESRD: S/p HD on 07/12. Plan to repeat HD on tomorrow 07/15 after cath. #IDDM: BG good. Continue current regimen and monitor. #Chest discomfort: Related to CPR. #Hypothyroidism: TSH significantly low. Recommended decreasing dose but patient refused. Will f/u with PCP. #TERESSA: On CPAP Dispo: Remain in PCU, likely dc 07/16. PT recommending home care. Subjective: Slept better. Walking ok with therapy. No new symptoms. Objective: Vital Signs Temp Pulse Resp BP Pulse Ox 36.7 C 80 16 116/50 L 94 07/14/18 07:36 07/14/18 07:36 07/14/18 07:36 07/14/18 08:22 07/14/18 07:36 Laboratory Results 07/11/18 04:26 07/14/18 04:55 07/13/18 07/14/18 07/15/18 05:59 05:59 05:59 Intake Total 650 900 Balance 650 900 PT 14.9 SEC (12.0-15.0) 07/10/18 15:28 INR 1.22 (0.83-1.16) H 07/10/18 15:28 - Physical Exam Constitutional: no apparent distress, appears nourished, not in pain Eyes: PERRL, anicteric sclera, EOMI Ears, Nose, Mouth, Throat: moist mucous membranes, hearing normal, ears appear normal, no oral mucosal ulcers Cardiovascular: regular rate and rhythym, no murmur, rub, or gallop, No edema Respiratory: no respiratory distress, no rales or rhonchi, clear to auscultation Gastrointestinal: normoactive bowel sounds, soft, non-tender abdomen, no palpable masses Genitourinary: no bladder fullness, no bladder tenderness, no renal bruits Skin: no rashes or abrasions, no fluctuance, no induration Musculoskeletal: full muscle strength, no muscle tenderness, normal joint ROM Neurologic: AAOx3 Psychiatric: interacting appropriately ICD10 Worksheet Patient Problems: Problems Problem Status Onset ESRD (end stage renal disease) on dialysis Acute
--- NOTE | 2018-07-14 13:49 | ASMTCMCOM ---
CM Note CM Note Notes: Spoke with pt. At this time PT recommending pt go home with homecare. [facility] notified. Pt reports she would ideally like to go home indepdently and will continue to work with therapies. Pt reports she had homecare in the past and would prefer outpatient follow-up. CM to follow as pt continues to progress and ensure appropriate and safe linkage for discharge. Pt reports she is engaged in many social groups with her taoist and says she has people she can ask for help if needed. Plan: HHC vs Independent with outpatient follow-up depending on progress. Date Signed: 07/14/2018 01:48 PM Electronically Signed By:DAVID Moses
--- NOTE | 2018-07-14 14:22 | SOAPPROG ---
SOAP Progress Note Assessment/Plan: Assessment: #ESRD- [facility] MWF -HD last run Friday evening, plan next run Fri (cardiac cath planned for 09) #Prolonged Qt -appreciate cardiology input- Qt improving but still inverted t waves/ST depression and plans for cardiac cath Wed am to evaluate for ischemia (meds and electrolytes on admit likely contributing) -unclear precipitant of electrolyte abnormalities as has been stable as outpt on dialysis- I reviewed last few months worth (K has been high 3, Ca high 8). Will hold parsabiv for now. Pt denies any n/v, diarrhea prior to admit. #CAD s/p CABG 2008 #anemia CKD -hb at goal #MBD of CKD -Ca/phos at goal #TERESSA on CPAP at night #DM2 #hypothyroidism Meme Lott MD [facility] pager [phone] Subjective: Feels better. No syncope, dizziness. Plans for cath tomorrow and she is ok with this plan. Admits she has been more fatigued over past few months. Objective: Vital Signs Temp Pulse Resp BP Pulse Ox 36.7 C 76 25 H 152/98 H 98 07/14/18 11:48 07/14/18 11:48 07/14/18 11:48 07/14/18 11:48 07/14/18 11:48 Laboratory Results 07/11/18 04:26 07/14/18 04:55 07/13/18 07/14/18 07/15/18 05:59 05:59 05:59 Intake Total 650 900 Balance 650 900 PT 14.9 SEC (12.0-15.0) 07/10/18 15:28 INR 1.22 (0.83-1.16) H 07/10/18 15:28 Physical Exam - Physical Exam General Appearance: alert, no apparent distress EENT: other (mmm) Neck: supple Respiratory: lungs clear Cardiac/Chest: regular rate, rhythm, other (no rub) Abdomen: normal bowel sounds, non-tender, soft Skin: warm/dry Extremities: other (no edema, LUE AVF +thrill/bruit) Neuro/Psych: alert, oriented x 3 ICD10 Worksheet Patient Problems: Problems Problem Status Onset ESRD (end stage renal disease) on dialysis Acute
--- NOTE | 2018-07-14 15:47 | PDCARPN ---
Cardiology Progress Note Chief Complaint: Polymorphic VT, CAD, long QT Assessment/Plan: Assessment: 1. Prolonged QT: Max 720ms. Most likely multifactorial, including medical therapy with Celexa, amiodarone, and tramadol. Slowly normalizing, 537ms yesterday, today's ECG is pending. 2. Polymorphic VT: Likely resulting from long QT. Query whether there may be an ischemic component as well. 3. Coronary artery disease: CABG in 02/2008. Anterior t-wave inversion noted on prior 12-lead ECGs, resolved today with new 1mm ST depression in V3-V6. Patient reports progressive mild fatigue over the past several months. No chest discomfort or other anginal symptoms 4. Hypertension: Coreg held until QT interval normalizes, continue to monitor 5. End-stage renal disease: HD 3x/week, next scheduled for Saturday 07/15 6. TERESSA: On CPAP 10. DM II Plan: 1. Plan for coronary angiogram with Dr. Morgan tomorrow morning, NPO after midnight 2. Hold Lovenox tomorrow morning, last dose 12hrs prior to cor angio 3. Continue to monitor QTc and electrolytes - ECG from today is pending 4. Nephrology will plan to proceed hemodialysis Friday after her morning cath 07/14/18 15:45 Subjective: No concerns overnight, ready for cath in AM Reviewed/Discussed With: multidisciplinary team Time Spent with Patient: greater than 25 minutes Time Spent with Patient: Greater than 25 minutes spent on this patients care, greater than 50% of time spent counseling, educating, and coordinating care regarding the above mentioned plan. Objective: Vital Signs (8 Hrs) Temp Pulse Resp BP Pulse Ox 07/14/18 15:39 77 24 H 147/73 H 97 07/14/18 11:48 36.7 C 76 25 H 152/98 H 98 07/14/18 08:22 116/50 L Intake/Output (24 Hrs) 07/13/18 07/14/18 07/15/18 05:59 05:59 05:59 Intake Total 650 900 Balance 650 900 Intake: Oral (ml) 650 900 Other: Number of Voids Bedside Commode 1 Toilet 1 1 1 Result Diagrams: 07/11/18 04:26 07/14/18 04:55 ICD10 Worksheet Patient Problems: Problems Problem Status Onset ESRD (end stage renal disease) on dialysis Acute
[2018-07-14] MEDS: ROSUVASTATIN CALCIUM 20 MG TAB PO SCH (20:08)
[2018-07-14] MEDS: guanFACINE HCL 1 MG TAB PO SCH (20:08)
[2018-07-15] MEDS: ACETAMINOPHEN 325 MG TAB PO PRN (00:18)
[2018-07-15] MEDS ORDERED: SODIUM CL NASAL GEL 14.1 GM TUBE TP PRN (02:32)
[2018-07-15 05:08] LABS: PLATELET COUNT 213 10^3/uL (150-400)
[2018-07-15 05:18] LABS: INR 1.18 (0.83-1.16); PROTIME(PATIENT) 14.5 SEC (12.0-15.0)
--- NOTE | 2018-07-15 05:50 | CPEKG ---
Test Reason : OPEN Blood Pressure : / mmHG Vent. Rate : 070 BPM Atrial Rate : 077 BPM P-R Int : 202 ms QRS Dur : 091 ms QT Int : 518 ms P-R-T Axes : -29 082 027 degrees QTc Int : 560 ms Sinus rhythm Atrial premature complexes Small inferior Q waves Anterior T wave inversions Prolonged QT interval When compared with ECG of 07/13/2018 anterior T abnl now noted. Confirmed by Zee Starks ([id number]) on 07/15/2018 5:49:53 AM Referred By: Obed Escobar Confirmed By:Zee Starks
[2018-07-15] MEDS ORDERED: FAMOTIDINE 20 MG TAB PO ONE (06:00)
[2018-07-15] MEDS ORDERED: NS 1,000 ML IV ONE (06:00)
[2018-07-15] MEDS ORDERED: ASPIRIN EC 325 MG TAB PO ONE ×2 (06:00→10:28)
[2018-07-15] MEDS: LEVOTHYROXINE 125 MCG TAB PO SCH (06:15)
[2018-07-15] MEDS: SEVELAMER HCL 800 MG TAB PO SCH ×3 (08:17→19:30)
[2018-07-15] MEDS: INSULIN 70/30 HUMAN 100 UNIT/ML SYR SC SCH ×3 (08:49→22:02)
[2018-07-15] MEDS: INSULIN LISPRO 100 UNIT/ML SC SCH ×3 (08:49→18:03)
[2018-07-15] MEDS ORDERED: LORazepam 0.5 MG TAB PO PRN ×2 (09:58→18:15)
--- NOTE | 2018-07-15 09:58 | HOSPPROG ---
Hospitalist Progress Note Assessment/Plan: 72yo F with CAD s/p CABG, ESRD transferred from [facility] following admission for syncope with subsequent Torsades de Pointes due to prolonged QT. #Prolonged QTc: Suspect due to meds (citalopram, tramadol, amio). QTc 560, up slightly from yesterday. Holding coreg. #Torsades de Pointes: Likely 2/2 above. Cardiology planning on coronary angiography today. Daily BMP, Mg. #Cardiopulmonary arrest s/p ROSC: Due to above. #ESRD: S/p HD on 07/12. Plan to repeat HD today after cath. #IDDM: BG good. Continue current regimen and monitor. #Chest discomfort: Related to CPR. #Hypothyroidism: TSH significantly low. Recommended decreasing dose but patient refused. Will f/u with PCP. #TERESSA: On CPAP #Anemia: Due to renal disease. No e/o bleeding. EPO per nephrology. Dispo: Remain in PCU, likely dc 07/16. PT recommending home care but patient refusing. Subjective: Anxious about procedure today. No other new complaints. QTc 560 on ecg this morning. Objective: Vital Signs Temp Pulse Resp BP Pulse Ox 36.6 C 79 23 H 143/90 H 96 07/15/18 04:00 07/15/18 08:00 07/15/18 08:00 07/15/18 08:00 07/15/18 08:00 Laboratory Results 07/15/18 04:55 07/15/18 04:55 07/14/18 07/15/18 07/16/18 05:59 05:59 05:59 Intake Total 900 900 Balance 900 900 PT 14.5 SEC (12.0-15.0) 07/15/18 04:55 INR 1.18 (0.83-1.16) H 07/15/18 04:55 - Physical Exam Constitutional: no apparent distress, appears nourished, not in pain Eyes: PERRL, anicteric sclera, EOMI Ears, Nose, Mouth, Throat: moist mucous membranes, hearing normal, ears appear normal, no oral mucosal ulcers Cardiovascular: regular rate and rhythym, no murmur, rub, or gallop, No edema Respiratory: no respiratory distress, no rales or rhonchi, clear to auscultation Gastrointestinal: normoactive bowel sounds, soft, non-tender abdomen, no palpable masses Genitourinary: no bladder fullness, no bladder tenderness, no renal bruits Skin: no rashes or abrasions, no fluctuance, no induration Musculoskeletal: full muscle strength, no muscle tenderness, normal joint ROM Neurologic: AAOx3, sensation intact bilaterally Psychiatric: interacting appropriately, not anxious, not encephalopathic, thought process linear ICD10 Worksheet Patient Problems: Problems Problem Status Onset ESRD (end stage renal disease) on dialysis Acute
[2018-07-15] MEDS: ALLOPURINOL 100 MG TAB PO SCH (10:27)
[2018-07-15] MEDS ORDERED: FAMOTIDINE 20 MG TAB ONE (10:27)
[2018-07-15] MEDS: NEPHROVITE FOLIC ACID/VIT B&C 1 TAB PO SCH (10:28)
[2018-07-15] MEDS: ASPIRIN EC 81 MG TAB PO SCH (10:28)
[2018-07-15] MEDS ORDERED: IOPAMIDOL (ISOVUE-370) 150 ML BTL IV ONE (10:44)
[2018-07-15] MEDS ORDERED: LIDOCAINE 1% 300 MG/30 ML SDV ONE (10:44)
[2018-07-15] MEDS ORDERED: MIDAZOLAM 2 MG/2 ML VIAL ONE (10:44)
[2018-07-15] MEDS ORDERED: fentaNYL 100 MCG/2 ML INJ ONE (10:44)
--- NOTE | 2018-07-15 10:46 | PDPROPOC ---
Sedation Plan of Care Sedation Plan of Care: vital signs stable, mental status noted, patient educated of risks, benefits, alternatives, patient can tolerate sedation ASA Classification: ASA 2 Planned drugs: fentanyl, midazolam Mallampati Score: Class 2 Mallampati Reference Image: Patient passed 3-3-2 rule?: Yes
--- NOTE | 2018-07-15 10:46 | PDHPUP ---
History & Physical Update H&P update statement: This history and physical update is based on an assessment of the patient which was completed after admission or registration (within 24 hours), but prior to the surgery/procedure. H&P update: H&P reviewed & patient examined, no change in patient's condition since H&P completed
[2018-07-15] MEDS ORDERED: HEPARIN 10,000 UNIT/10 ML MDV (1,000 UNIT/ML) ONE (11:25)
[2018-07-15] MEDS: FLUTICASONE NASAL 120 SPRAYS/16 GM MDI EACHNARE SCH (14:00)
[2018-07-15] MEDS: hydrALAZINE 20 MG/ML VIAL IVP PRN (14:12)
[2018-07-15] MEDS ORDERED: ATROPINE SULFATE 1 MG/10 ML SYR ONE (14:52)
--- NOTE | 2018-07-15 18:32 | CPEKG ---
Test Reason : OPEN Blood Pressure : / mmHG Vent. Rate : 079 BPM Atrial Rate : 079 BPM P-R Int : 226 ms QRS Dur : 089 ms QT Int : 477 ms P-R-T Axes : 049 093 040 degrees QTc Int : 548 ms Sinus rhythm Ventricular premature complex Prolonged RI interval Right axis deviation Consider left ventricular hypertrophy Nonspecific T abnormalities, anterior leads Prolonged QT interval Confirmed by Zee Starks ([id number]) on 07/15/2018 6:31:31 PM Referred By: Obed Escobar Confirmed By:Zee Starks
[2018-07-15] MEDS: ROSUVASTATIN CALCIUM 20 MG TAB PO SCH (22:02)
[2018-07-15] MEDS: guanFACINE HCL 1 MG TAB PO SCH (22:02)
[2018-07-16] MEDS ORDERED: LIDOCAINE 1% *Not for Epidural 20 ML MDV IV ONE (05:48)
[2018-07-16] MEDS: LEVOTHYROXINE 125 MCG TAB PO SCH (06:00)
[2018-07-16] MEDS: INSULIN 70/30 HUMAN 100 UNIT/ML SYR SC SCH ×2 (09:12→11:37)
[2018-07-16] MEDS: NEPHROVITE FOLIC ACID/VIT B&C 1 TAB PO SCH (09:15)
[2018-07-16] MEDS: SEVELAMER HCL 800 MG TAB PO SCH ×2 (09:15→11:37)
[2018-07-16] MEDS: ASPIRIN EC 81 MG TAB PO SCH (09:15)
[2018-07-16] MEDS: ALLOPURINOL 100 MG TAB PO SCH (09:16)
[2018-07-16] MEDS: FLUTICASONE NASAL 120 SPRAYS/16 GM MDI EACHNARE SCH (09:38)
[2018-07-16] MEDS: INSULIN LISPRO 100 UNIT/ML SC SCH ×2 (10:09→11:37)
--- NOTE | 2018-07-16 10:14 | SOAPPROG ---
EDWARDO Progress Note Assessment/Plan: Assessment/Plan: 72 y/o F with h/o ESRD who presented with prolonged QT and torsades, s/p cardiac catheterization. ESRD -HD complete yesterday -will return to [facility] MWF -L AVF intact HTN/vol -CAD s/p CABG 2008 -cath reportedly ok, f/u with cardiology -continue home meds with the exception of amio Anemia CKD -Hb at goal -EPO/iron as outpatient MBD of CKD -Ca/phos at goal Will continue to follow, please contact if ?'s. #[phone] 07/16/18 11:19 Subjective: S/p cath and HD yesterday. Feeling better and wants to go home this afternoon. Objective: Vital Signs Temp Pulse Resp BP Pulse Ox 36.7 C 78 15 112/60 96 07/16/18 07:30 07/16/18 09:20 07/16/18 09:20 07/16/18 09:20 07/16/18 09:20 Laboratory Results 07/15/18 04:55 07/16/18 03:15 07/15/18 07/16/18 07/17/18 05:59 05:59 05:59 Intake Total 900 1050 430 Output Total 150 Balance 900 1050 280 PT 14.5 SEC (12.0-15.0) 07/15/18 04:55 INR 1.18 (0.83-1.16) H 07/15/18 04:55 Physical Exam - Physical Exam General Appearance: WD/WN, alert, no apparent distress EENT: PERRL/EOMI Neck: non-tender, full range of motion, supple Respiratory: chest non-tender, accessory muscle use, decreased breath sounds Cardiac/Chest: normal peripheral pulses, regular rate, rhythm, edema Abdomen: normal bowel sounds, non-tender, soft Skin: normal color, warm/dry Extremities: normal range of motion Neuro/Psych: no motor/sensory deficits, alert, normal mood/affect ICD10 Worksheet Patient Problems: Problems Problem Status Onset ESRD (end stage renal disease) on dialysis Acute
[2018-07-16 11:24] VITALS: BP 146/71
--- NOTE | 2018-07-16 11:40 | PDCARPN ---
Cardiology Progress Note Assessment/Plan: Assessment: Torsades du pointes in the context of multiple QT-prolonging drugs and severe hypokalemia. QTc >700 on presentation. Now 480ms range, since having held offending agents and correcting lytes. No FH red flags; no personal history of syncope other than immediately prior to this admission. Low index of suspicion for LQTS. Plan: -avoid QT prolonging drugs -monitor lytes with HD closely, and avoid hypokalemia -2 week ZIO monitor on discharge (supplied today), and followup in cardiology clinic with Dr Sage Morgan (I will plan to review the ZIO monitor prior to her followup) 07/16/18 11:37 Subjective: No acute events. Tele only shows isolated PVCs. Feeling well, interested in being discharged to home today. Objective: Vital Signs (8 Hrs) Temp Pulse Resp BP Pulse Ox 07/16/18 11:20 36.9 C 71 14 146/71 H 99 07/16/18 09:20 78 15 112/60 96 07/16/18 07:30 36.7 C 64 98/61 L 07/16/18 03:43 36.5 C 76 12 106/46 L 96 Intake/Output (24 Hrs) 07/15/18 07/16/18 07/17/18 05:59 05:59 05:59 Intake Total 900 1050 430 Output Total 150 Balance 900 1050 280 Intake: Oral (ml) 900 250 430 IV Intake (ml) 800 Output: Urine (ml) 150 Toilet 150 Other: Intake Quantity Pt not on PCU floor for day shift Sufficient Number of Voids Toilet 2 2 1 Number of Stools Toilet 1 1 Result Diagrams: 07/15/18 04:55 07/16/18 03:15 - Physical Exam Eyes: PERRL, EOMI, anicteric sclera Ears, Nose, Mouth, Throat: moist mucous membranes Cardiovascular: regular rate and rhythm, no murmurs, no rubs, no gallops Respiratory: clear to auscultate bilat Gastrointestinal: normoactive bowel sounds Skin: no rashes Neurologic: AAOx3, CN II-XII grossly intact Psychiatric: cooperative, interactive, following commands, not anxious ICD10 Worksheet Patient Problems: Problems Problem Status Onset ESRD (end stage renal disease) on dialysis Acute
--- NOTE | 2018-07-16 12:24 | PDIAF ---
- Diagnosis Code Status: Full Code - Medication Management Discharge Medications: electronically signed and located in the Home Medication List. PICC Care - Routine: N/A - Orders Services needed: Home Care, Physical Therapy Home Care Face to Face: I certify that this patient was under my care and that I had the required jewn-in-tkey encounter meeting the encounter requirements on the discharge day. My findings support the fact that the patient is homebound as defined in Home Care Face to Face Continued: CMS Chapter 7 Medicare Benefits Manual 30.1.1 , The condition of the patient is such that there exists a normal inability to leave home and consequently, leaving home would require a considerable and taxing effort. Evans: Not applicable Additional Instructions: We have discontinued your celexa, tramadol, and carvedilol. Wear the Zio patch as directed and follow up with the cardiologists as planned ( [address] Morgan). Please see your primary care physician in 1-2 weeks. Continue dialysis as usual. We are setting you up with home health care physical therapy. - Follow Up Care Current Providers and Referrals: Johanna Brower MD [Primary Care Provider] -
--- NOTE | 2018-07-16 12:24 | PDDCSUM ---
Discharge Summary Discharge Summary: Date of Admission: 07/10/2018 Date of Discharge: 07/16/2018 Consultants: cardiology, nephrology Studies/Procedures: coronary angiography Discharge Diagnoses: 1. Prolonged QTc, likely medication and electrolyte induced 2. Polymorphic VT 3. Cardiopulmonary arrest s/p ROSC 4. Syncope 5. CAD s/p remote CABG 6. ESRD on HD 7. IDDM 8. Chest discomfort related to CPR 9. Hypothyroidism 10. TERESSA on CPAP 11. Anemia of renal disease 12. Anxiety Brief Hospital Course: 72yo F with CAD s/p CABG, ESRD transferred from [facility] following admission for syncope. She was noted to have significant electrolyte imbalances including hypokalemia. She went into Torsades de Pointes with subsequent cardiac arrest. She was resuscitated after CPR and defibrillation with normal neurologic recovery. ECG showed prolonged QTc. She was started on amiodarone at their facility. The union laborer at [facility] was down so she was transferred to [facility] ICU for further care. Her QTc was found to be in the 700s. Her electrolytes were corrected and her citalopram, tramadol, amiodarone and carvedilol were stopped. Her QTc improved to 480-500. She had no recurrence of VT. She did undergo coronary angiography to exclude ischemia as etiology of VT; this was reportedly unremarkable however I do not have access to the procedure report at time of discharge. She did undergo HD while hospitalized and will resume her normal MWF schedule. She was discharged with a 2 week ZIO monitor. Medications: Please refer to EMR for complete list. We have discontinued her tramadol, citalopram, and carvedilol. Follow Up Plan: 1. Cardiology clinic with Dr Sage Morgan 2. PCP to discuss ongoing anxiety management (stopped citalopram) 3. Close monitoring of electrolytes with hemodialysis sessions Physical Exam: Vitals and telemetry reviewed. Alert and oriented, rrr, lungs clear, abdomen soft, no leg edema, no rashes.
--- NOTE | 2018-07-16 12:39 | ASMTLACE ---
DANIELLAE Length of stay for Answers: 4-6 days current admission Acuity / Level of Answers: Yes Care: Did the patient have an inpatient admission? Comorbidities - select Answers: Coronary Artery Disease all that apply Diabetes (uncontrolled or controlled) Mild liver or renal disease # of Emergency department Answers: 0 visits in the last 6 months Score: 12 Date Signed: 07/16/2018 12:38 PM Electronically Signed By:Francheska Dempsey
--- NOTE | 2018-07-16 12:53 | ASDISCHSUM ---
Discharge Information Plan Status:Home with Home Health Medically Cleared to Leave:07/16/2018 Discharge Date:07/16/2018 CM D/C Disposition:Home Health Service ADT D/C Disposition:Home Health Service Projected Discharge Date:07/16/2018 11:00 AM Transportation at D/C:Family Discharge Delay Reason: Follow-Up Date:07/16/2018 11:00 AM Discharge Slot: Final Diagnosis: Placement Information Referral Type:*Home Health Care Services Referral ID:[id number] Provider Name:[facility] Address 1:[address] [place] [address] Address 2: City:[place] Selection Factors: State:[place] Patient Contact Information Contact Name:KNOWNUN Relationship: Address: Home Phone: Work Phone: City: [facility] Phone: [facility] Code: Email: Financial Information Financial Class:Medicare Advantage Plans Primary Plan Desc:[facility] [facility] [employer] PLANS Primary Plan Number:[id number] Secondary Plan Desc: Secondary Plan Number: Assessment Information [facility] CM Progress Note CM Note CM Note Notes: Patient transferred from [facility] after two episodes of Torsade de Pointe. She is currently stable with no recurrance. She will be monitored today and assessed with an ECG tomorrow morning. She also has a hx of ESRD and is dialyzed MWF at the [facility] She is normally independent, lives alone. She has a daughter and MORRIS in the area and a son and DIL in [place]. Annette farooq she will be able to go home with no needs other than outpatient f/u. Date Signed: 07/11/2018 09:38 AM Electronically Signed By:Lillie Andres RN [facility] Length of stay for Answers: 4-6 days current admission Acuity / Level of Answers: Yes Care: Did the patient have an inpatient admission? Comorbidities - select Answers: Coronary Artery Disease all that apply Diabetes (uncontrolled or controlled) Mild liver or renal disease # of Emergency department Answers: 0 visits in the last 6 months Score: 12 Date Signed: 07/16/2018 12:38 PM Electronically Signed By:Francheska Dempsey [facility] Progress Note CM Note CM Note Notes: Pt has been progressing with therapies and medically. At this time OT rec home. Pt had questions about setting up a life alert system. CM provided her with information. Pt was appreciative. PT evals pending. CM to follow. Plan: likely independent, pending PT eval. Date Signed: 07/13/2018 02:02 PM Electronically Signed By:DAVID Moses [facility] Progress Note CM Note CM Note Notes: Spoke with pt. At this time PT recommending pt go home with homecare. [facility] notified. Pt reports she would ideally like to go home indepdently and will continue to work with therapies. Pt reports she had homecare in the past and would prefer outpatient follow-up. CM to follow as pt continues to progress and ensure appropriate and safe linkage for discharge. Pt reports she is engaged in many social groups with her sikhism and says she has people she can ask for help if needed. Plan: HHC vs Independent with outpatient follow-up depending on progress. Date Signed: 07/14/2018 01:48 PM Electronically Signed By:DAVID Moses Case Management Discharge Plan Note Case Management Discharge Discharge Order Complete? Answers: Yes Patient to Obtain Answers: via Family Medications Transportation Arranged Answers: Family/Friends Faxed Final Orders Answers: Yes Notes: To [facility] Agency/Facility Transfer Answers: Yes Notes: To [facility] Report Printed & Faxed to Receiving Agency Discharge Comments Notes: CM met with patient. Patient lives alone and her daughter lives close to her home if she needs anything. Final orders sent to [facility]. [facility] reports that they will come out this weekend to start services. CAGE questionnaire completed. No at-risk behaviors identified. No further CM needs identified at this time. Date Signed: 07/16/2018 12:51 PM Electronically Signed By:Francheska Dempsey Intervention Information Intervention Type:*IM-Signed Date of Service:07/16/2018 12:16 PM Patient Type:Inpatient Staff Member:So Hooks Hours: Discipline: Severity: Comment:
--- NOTE | 2018-07-16 12:53 | ASMTDCNOTE ---
Case Management Discharge Discharge Order Complete? Answers: Yes Patient to Obtain Answers: via Family Medications Transportation Arranged Answers: Family/Friends Faxed Final Orders Answers: Yes Notes: To [facility] Agency/Facility Transfer Answers: Yes Notes: To [facility] Report Printed & Faxed to Receiving Agency Discharge Comments Notes: CM met with patient. Patient lives alone and her daughter lives close to her home if she needs anything. Final orders sent to [facility]. [facility] reports that they will come out this weekend to start services. CAGE questionnaire completed. No at-risk behaviors identified. No further CM needs identified at this time. Date Signed: 07/16/2018 12:51 PM Electronically Signed By:Francheska Dempsey
--- NOTE | 2018-07-22 12:27 | CPIP ---
[f rep st] INVASIVE CARDIAC PROCEDURE DATE OF PROCEDURE: 07/15/2018 INDICATIONS: The patient is 72 years old. She has a history of coronary artery disease with previou s bypass surgery. She presents with cardiac arrest related to [place]. She has been stabi lized with no neurologic sequela. PROCEDURE: Diagnostic left heart catheterization, coronary angiography, left ventriculography, saphe nous vein graft angiography, left internal mammary artery graft angiography. TECHNIQUE: Following informed consent, in the fasting state, the patient was brought to cardiac cath eterization laboratory. The right groin was prepped and draped in usual sterile fashion. 2% lidocai ne was infiltrated in the skin overlying the right femoral artery. Using the modified Seldinger tech nique, access was gained and a 6-Indian long safe sheath was placed. Using standard right and left J udkins catheters, orthogonal images of the [place] coronary arteries were obtained. Using the JR-4 ca theter, images were obtained of the saphenous vein grafts. Using the right coronary artery bypass gr aft catheter, images of the saphenous vein graft between the PDA and posterolateral branch were obtai dodie. By using the internal mammary artery catheter, imaging of the internal mammary artery was obtai dodie. Following the procedures, all catheters were removed from the body, the sheath was pulled, and manual pressure was held. FINDINGS: 1. Left main: The left main is a diffusely disease, moderate caliber vessel with a distal 40% to 50 % tapering. There is trifurcation into the left anterior descending circumflex and ramus intermedius branches. 2. Left anterior descending: Left anterior descending is severely proximally diseased. It becomes occluded after a heavily diseased 1st diagonal branch. 3. Ramus intermedius: Ramus intermedius is a moderate caliber vessel supplying the lateral wall. T here is a proximal 30% lesion noted. 4. Right coronary artery: The right coronary artery is proximally occluded. 5. Saphenous vein graft to the diagonal branch. The saphenous vein graft is widely patent. Injecti on of this graft resulted in opacification of the [place] diagonal branch back to the LAD and to the p oint of occlusion within the [place] LAD. 6. Saphenous vein graft to the obtuse marginal branch: This graft is widely patent. There is excel lent opacification of the obtuse marginal branch back to the point of occlusion at the circumflex. T here is no significant retrograde opacification of the [place] circumflex up to the point of occlusion from the origin of the left main. 7. Saphenous vein graft to the PDA with a skip graft to the PL. This graft is widely patent and opa cifies the PDA, as well as a large posterolateral arcade and retrograde into the right coronary arter y to the distal occlusion within the [place] RCA. 8. SWIFT to the LAD: This graft is widely patent. There is opacification of the LAD both antegrade and retrograde to the point of occlusion within the vessel. 9. Left ventriculography: The ejection fraction is 50%. There is homogeneous contractility of all cardiac segments. No significant mitral regurgitation is noted. IMPRESSION: 1. Severe [place] coronary artery disease as described above. 2. Patent left internal mammary artery graft to the left anterior descending, saphenous vein graft t o a diagonal branch, saphenous vein graft to an obtuse marginal branch, saphenous vein graft between the posterior descending and posterolateral branches. 3. Low normal ejection fraction at 50% with no regional wall motion abnormalities. RECOMMENDATIONS: Continue medical therapy for secondary prevention. The patient's cardiac arrest wa s related to [place] in the setting of significant metabolic abnormalities, as well as adve rse drug affects. Based on this study, it does not appear that there is a substantial component of i schemia to the patient's recent arrest. /[id number]/MODL
== END 2018-07-16 13:40 | disposition home health service (06) | DRG 286 ==
LOC: F2N 14:29 → F2W 07-15 15:05
PROVIDERS: ADMIT Family Medicine; ATTEND Internal Medicine
PROC: 4A023N7 Measurement of Cardiac Sampling and Pressure, Left Heart, Percutaneous Approach (ICD-10-PCS; principal; 2018-07-15)
PROC: B2131ZZ Fluoroscopy of Multiple Coronary Artery Bypass Grafts using Low Osmolar Contrast (ICD-10-PCS; principal; 2018-07-15)
PROC: B2151ZZ Fluoroscopy of Left Heart using Low Osmolar Contrast (ICD-10-PCS; principal; 2018-07-15)
PROC: B2111ZZ Fluoroscopy of Multiple Coronary Arteries using Low Osmolar Contrast (ICD-10-PCS; principal; 2018-07-15)
PROC: 5A1D70Z Performance of Urinary Filtration, Intermittent, Less than 6 Hours Per Day (ICD-10-PCS; 2018-07-15)
DX: I45.81 Long QT syndrome (principal); N18.6 End stage renal disease; I12.0 Hypertensive chronic kidney disease with stage 5 chronic kidney disease or end stage renal disease; E87.1 Hypo-osmolality and hyponatremia; E83.51 Hypocalcemia; I25.10 Atherosclerotic heart disease of native coronary artery without angina pectoris; E11.22 Type 2 diabetes mellitus with diabetic chronic kidney disease; E11.319 Type 2 diabetes mellitus with unspecified diabetic retinopathy without macular edema; E66.9 Obesity, unspecified; Z68.29 Body mass index [BMI] 29.0-29.9, adult; E03.9 Hypothyroidism, unspecified; G47.33 Obstructive sleep apnea (adult) (pediatric); E78.5 Hyperlipidemia, unspecified; D63.1 Anemia in chronic kidney disease; F41.9 Anxiety disorder, unspecified; J44.9 Chronic obstructive pulmonary disease, unspecified; M10.9 Gout, unspecified; R07.89 Other chest pain; Z95.1 Presence of aortocoronary bypass graft; Z79.4 Long term (current) use of insulin
CPT/HCPCS: 84480-90; 97116-GP; 97161-GP; 97165-GO; 97530-GO; 97530-GP; 97535-GO; J0360; J0461; J1644; J1815; J2250; J2270; J3010; Q9967